=== PATIENT | male | born 1985 | race Caucasian/White ===

== ENCOUNTER 2023-05-06 10:56 | Emergency (ER) | payer OTHER, SELFPAY ==
[2023-05-06 11:00] VITALS: BP 164/96
[2023-05-06 11:48] VITALS: BMI 40.8
[2023-05-06 12:21] VITALS: BP 144/81
--- NOTE | 2023-05-06 13:02 | ED.GENMED ---
History of Present Illness
<Martina Logan PA-C - Last Filed: 05/06/23 14:53>
General
Chief Complaint: Skin Problem
Source: patient
Exam Limitations: none
Time Seen by Provider: 05/06/23 11:13
Nursing documentation reviewed up to this point in time: agreed with
Travel History
Have you had any contact with someone who has COVID-19?: No
Do you have any symptoms of coronavirus? Fever > 100 degrees, chills, cough, shortness of breath, sore throat, loss of taste or smell, muscle aches, or headache?: No
History of Present Illness
History of Present Illness:
This is a 37-year-old male with no past medical history presenting to the emergency department today with a injury to her right hand. 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
tripped and cut his hand on the sharp edge of the plate. Patient denies falling down and hitting his head. Patient only notes some mild burning at the site of the laceration but otherwise has no hand pain. Patient denies any broken tools in his
hand, or any other foreign bodies. Patient denies paresthesias in his hand. Patient denies any other injuries.
Past History
<Martina Logan PA-C - Last Filed: 05/06/23 14:53>
Past History
ED Past Medical History: None
ED Past Surgical History: None
Review of Systems
<Martina Logan PA-C - Last Filed: 05/06/23 14:53>
Review of Systems
All Other Systems: ROS reviewed and negative except as documented in HPI and ROS
Phy Exam
<Martina Logan PA-C - Last Filed: 05/06/23 14:53>
Physical Exam
Physical Exam:
General: Patient appears well and is in no acute distress
Skin: There is a 2.5 cm laceration with uneven edges and small flap at the end of the wound with protrusion of fatty tissue. No tendon involvement. Cap refill less than 2 seconds
Cardiac: regular rate
Pulm: normal respiratory effort
Musculoskeletal: Patient has full range of motion of bilateral upper extremities. Patient has no bony tenderness of the right hand. Flexor digitorum profundus and flexor digitorum superficialis testing intact on the right phalanges. Sensation of
both hands intact bilaterally.
Neuro: patient is awake and alert x3.
Course
<Martina Logan PA-C - Last Filed: 05/06/23 14:53>
Vital Signs
Initial and Last Documented VS:
Initial Vital Signs
Temp Pulse Resp BP Pulse Ox
98.1 F 81 18 164/96 99
05/06/23 11:00 05/06/23 11:00 05/06/23 11:00 05/06/23 11:00 05/06/23 11:00
Last Documented Vital Signs
Temp Pulse Resp BP Pulse Ox
98.1 F 82 16 150/82 99
05/06/23 11:00 05/06/23 13:11 05/06/23 13:11 05/06/23 13:11 05/06/23 13:11
<Ervin Hollis MD - Last Filed: 05/09/23 15:06>
Vital Signs
Initial and Last Documented VS:
Initial Vital Signs
Temp Pulse Resp BP Pulse Ox
98.1 F 81 18 164/96 99
05/06/23 11:00 05/06/23 11:00 05/06/23 11:00 05/06/23 11:00 05/06/23 11:00
Last Documented Vital Signs
Temp Pulse Resp BP Pulse Ox
98.1 F 82 16 150/82 99
05/06/23 11:00 05/06/23 13:11 05/06/23 13:11 05/06/23 13:11 05/06/23 13:11
Procedures
<Martina Logan PA-C - Last Filed: 05/06/23 14:53>
Laceration Closure
Right Hand:
Status of Wound: clean
Size of Wound in cm: 2.5
Description of Wound Edges: ragged and flap-well vascularized
Preparation: cleaned with saline and cleaned with Betadine
Anesthesia: 1% Lidocaine with epi
Revision/Debridement: minor revision
Wound exploration: explored to base- no FB and no tendon involvement
Type of Closure: single layer closure
Skin Closure Material: 5-0 prolene
Number of sutures: 11
<Martina Logan PA-C - Last Filed: 05/06/23 14:53>
MDM/Problems Addressed
Differential Diagnosis Includes:
simple laceration, tendon injury, hand fracture
MDM/Problems Addressed:
hand laceration
Chronic conditions affecting care:
n/a
Acute Exacerbation and/or Progression of Chronic Illness:
n/a
<Martina Logan PA-C - Last Filed: 05/06/23 14:53>
*Pulse Oximetry
Patient hypoxic: no
*Critical Care Note
Total Time (30-74mins, 75-104mins- exclusive of procedures): Not Applicable
Data Reviewed
Review of Other/Old Records Reveals: Records (Reviewed ER physician documentation from 03/30/2019)
Prescriptions/Medications Considered But Not Given:
n/a
Further Testing Considered But Not Given:
Considered x-ray of hand however patient does not have significant trauma mechanism, no bony tenderness, no foreign body
<Martina Logan PA-C - Last Filed: 05/06/23 14:53>
Patient Management
Escalation/DeEscalation of care consider admission/obs:
This is a 37-year-old male with no past medical history presenting today with a laceration to his right hand. Patient cut his hand while working with pipes. On exam, patient has intact flexor digitorum profundus and flexor digitorum superficialis
testing. Patient has full range of motion of bilateral upper extremities. Patient has no paresthesias and intact sensation. Patient's cap refill in right hand is less than 2 seconds. Patient's wound was repaired with 5-0 Prolene sutures, patient
tolerated procedure well. Advised patient to return to emergency department should she develop the inability to move his hand, numbness or tingling in his hand, purulent drainage from the wound, wound dehiscence, fevers or chills, or other
concerning signs or symptoms.
ED Attending Note
<Martina Logan PA-C - Last Filed: 05/06/23 14:53>
-
Portions of this chart may have been created with voice recognition software.� Occasional wrong word or��sound alike� substitutions may have occurred due to the inherent limitations of voice recognition software.
<Ervin Hollis MD - Last Filed: 05/09/23 15:06>
ED Attending Note
Patient seen and examined by attending physician: Yes
I performed the substantive portion of visit, reviewed & personally made and approve the management plan that is documented in note by myself or KELSIE.: Yes
ED Attending Note:
37-year-old male laceration to the palm of the right hand from a sharp type. Motor or sensory neurovascular intact. Tetanus less than 5.
Laceration to the palm. Flexion DIP PIP all intact. Sensation intact. Cap refill normal. No foreign body. No evident visual tendon.
Suture sterilely by the physicians insurance assistant. Rechecked and done well.
Discharge Plan
Departure
Patient Disposition: Home (Routine Discharge)
Date of Disposition: 05/06/23
Time of Disposition: 12:50
Patient with high blood pressure during this ER visit?: Yes
Condition: Good
Discharge Problem:
Hand laceration
Instructions: Laceration Repair With Stitches (DC)
Referrals:
Hussain Gould MD [Family Provider] -
Stand Alone Forms: Return to Work
Activity Restrictions/Additional Instructions:
Please keep the wound dry for 48 hours. After this time, you can wash the wound with mild soap and water.
Please return emergency department should you experience fevers or chills, purulent drainage from the wound, wound dehiscence, numbness or tingling in your hand, increasing pain, surrounding redness to the wound, or other concerning signs or
symptoms.
Please refrain from the use of heavy machinery, power tools for 2 weeks.
Please report to your primary care provider or the emergency department to have the stitches removed in 7-10 days.
Interventions
Interventions:
*Risk Screen - Suicide Last Done: 05/06/23 11:00
*General Assessment Last Done: 05/06/23 11:00
*Neglect/Abuse Screening Last Done: 05/06/23 11:00
ED- Fall Risk Assessment Last Done: 05/06/23 12:20
*ED COVID-19 Vaccine History Last Done: 05/06/23 11:00
*Nursing Disposition Last Done: 05/06/23 13:11
ED-Skin Assessment Last Done: 05/06/23 13:11
Discharge Date and Time
Discharge Date/Time: 05/06/23 13:12
[2023-05-06 13:11] VITALS: BP 150/82
== END 2023-05-06 13:12 | disposition home or self-care (01) ==
LOC: EMR 10:56
PROVIDERS: EMERGENCY PHYSICIAN Emergency Medicine; FAMILY PHYSICIAN Internal Medicine
DX: S61.411A Laceration without foreign body of right hand, initial encounter (principal); W26.8XXA Contact with other sharp object(s), not elsewhere classified, initial encounter; Y93.H3 Activity, building and construction; Y99.0 Civilian activity done for income or pay; R03.0 Elevated blood-pressure reading, without diagnosis of hypertension
CPT/HCPCS: 99282; 12001